=== PATIENT | female | born 1945 | race Caucasian/White ===

== ENCOUNTER → 2017-02-06 | Outpatient (CLI) | payer OTHER | LOC: FIMAGING 08:45 | DX: Z12.31 Encounter for screening mammogram for malignant neoplasm of breast (principal); Z80.3 Family history of malignant neoplasm of breast | CPT/HCPCS: G0202 ==

== ENCOUNTER → 2017-02-07 | Outpatient (CLI) | payer OTHER | LOC: FIMAGING 14:55 | PROVIDERS: ATTEND Physician Assistant | DX: M25.562 Pain in left knee (principal); M17.12 Unilateral primary osteoarthritis, left knee ==

== ENCOUNTER 2017-11-11 11:45 | Emergency (ER) | payer OTHER ==
[2017-11-11 12:04] VITALS: TEMP 98.2; O2SAT 98
--- NOTE | 2017-11-11 12:22 | EDPHY ---
H & P Stated Complaint: pt slipped and fell, deformity to left wrist Time Seen by Provider: 11/11/17 11:50 HPI/ROS: CHIEF COMPLAINT: Left wrist pain HISTORY OF PRESENT ILLNESS: 72-year-old female arrives via ambulance, not a trauma activation, after she slipped on ice landing on her outstretched left hand. She is complaining of left wrist pain. Denies head injury, denies break in skin, denies proximal upper extremity injury. Denies midline C-spine pain. Denies alcohol or drug use. No hip pain. PRIMARY CARE PROVIDER: REVIEW OF SYSTEMS: A ten point review of systems was performed and is negative with the exception of the items mentioned in the HPI PAST MEDICAL/SURGICAL HISTORY: no anticoagulant use, no relevant medical/ surgical history SOCIAL HISTORY: denies alcohol use at time of incident PHYSICAL EXAM 1) GENERAL: Well-developed, well-nourished, alert and oriented. Appears to be in no acute distress. Answering questions appropriately. 2) HEAD: Normocephalic, atraumatic 3) HEENT: Pupils equal, round, reactive to light bilaterally. Negative Horners. Nasopharynx, oropharynx, clear. No deformity or angulation of nose. No septal hematoma. No rhinorrhea. No oral trauma. Ears bilaterally with normal tympanic membranes. No hemotympanum. No fluid or blood in the external auditory canal. No raccoon eyes. No Villalobos sign. Teeth are normally aligned with no gross malocclusion, TMJ bilaterally nontender, facial bones nontender including the zygomatic arch, maxilla mandible. 4) NECK: No cervical collar is on. Posterior cervical spine is nontender, no stepoff, no effusion. Full range of motion which does not elicit any midline cervical spine pain, no posterior midline tenderness, no step-off. 5) LUNGS: Clear to auscultation bilaterally, no wheezes, no rhonchi, no retractions. No obvious signs of trauma. No chest wall pain. No flaring, no grunting. Moving symmetrically. No crepitus. 6) HEART: [Regular rate and rhythm, 7) ABDOMEN: No guarding, no rebound, no focal tenderness, no peritoneal signs, no signs of trauma, no ecchymosis 8) MUSCULOSKELETAL: Left upper extremity: Pre-hospital volar leigha splint in place, taken down revealing dorsal deformity, intact skin, radial ulnar median nerve function intact, brisk pulses. Proximally nontender. Elbow humerus shoulder nontender. Otherwise, Moving all extremities, no focal areas of tenderness, no obvious trauma. 9) BACK: No midline vertebral tenderness, no fluctuance, no step-off, no obvious trauma, no visual or palpable abnormality. 10) SKIN: No laceration. No abrasion DIFFERENTIAL DIAGNOSIS: In no particular include but limited to fracture, sprain, strain, dislocation - Personal History Current Tetanus Diphtheria and Acellular Pertussis (TDAP): Unsure - Medical/Surgical History Hx Asthma: No Hx Chronic Respiratory Disease: No Hx Diabetes: No Hx Cardiac Disease: No Hx Renal Disease: No Hx Cirrhosis: No Hx Alcoholism: No Hx HIV/AIDS: No Hx Splenectomy or Spleen Trauma: No Other PMH: a-fib, osteoprosis - Social History Smoking Status: Never smoked Constitutional: Initial Vital Signs Temperature (C) 36.8 C 11/11/17 11:55 Heart Rate 87 11/11/17 11:55 Respiratory Rate 18 11/11/17 11:55 Blood Pressure 152/79 H 11/11/17 11:55 O2 Sat (%) 98 11/11/17 11:55 O2 Delivery Mode Room Air Allergies/Adverse Reactions: Penicillins Allergy (Severe, Verified 03/14/10 17:26) Rash nitrofurantoin [From Macrobid] Allergy (Verified 11/11/17 11:55) Home Medications: Medication Instructions Recorded NO HOME MEDS 03/14/10 Hydrocodone/APAP 5/325 [[place] 1 tab PO Q6 PRN #7 tab 11/11/17 5/325 (RX)] Medical Decision Making - Diagnostics Imaging Results: Imaging Impressions Wrist X-Ray 11/11/17 12:04 Impression: 1. Comminuted displaced distal left radial metaphyseal fracture with intra- articular extension and impaction. 2. Ulnar styloid avulsion. 3. Loss of volume and fragmentation of the proximal pole of the left scaphoid potentially related to remote trauma. Associated scapholunate interspace widening. 4. First CMC osteoarthritis. Wrist X-Ray 11/11/17 13:01 Impression: Interval casting of the distal left forearm and wrist. Distal left radial metaphyseal fracture with impaction and dorsal displacement appears similar. Displaced ulnar styloid avulsion. Scapholunate interspace widening with loss of volume and fragmentation of the proximal pole of the scaphoid. Wrist X-Ray 11/11/17 13:39 Impression: Interval reduction in dorsal displacement of distal left radial metaphyseal fracture, with reconstitution of radial length. Procedures: Procedure: Fracture reduction Indication: Fracture of the distal radius Indications, risks and benefits discussed with patient and consent obtained. A hematoma block of 0.5% bupivicaine placed by myself. Traction and countertraction applied achieving a visible and palpable reduction. The area was splinted with sugar-tong splint and sling. After application of the splint I returned and re-examined the patient. The splint was adequately immobilizing the joint and distal to the splint the patient's circulation and sensation were intact. Patient shows no signs of compartment syndrome. Was given orthopedic precautions. ED Course/Re-evaluation: Care of patient under supervision of secondary supervising physician Dr Edy Salazar. Patient was re-evaluated with serial examinations, she remains neurovascularly intact. Plan will be discharge. She would like to follow up with Dr. Guerra Departure - Departure Disposition: Home, Routine, Self-Care Clinical Impression: Displaced fracture of left ulna styloid process, initial encounter for closed fracture Fall from slipping on ice Qualifiers: Encounter type: initial encounter Qualified Code(s): W00.9XXA - Unspecified fall due to ice and snow, initial encounter Distal radius fracture, left Qualifiers: Encounter type: initial encounter Fracture type: closed Fracture morphology: Colles' Qualified Code(s): S52.532A - Colles' fracture of left radius, initial encounter for closed fracture Condition: Good Instructions: Wrist Fracture in Adults (ED) Additional Instructions: Return to the ER immediately if you experience discoloration, have worsening pain, numbness, tingling, or any other symptoms that concern you. If you received x-rays in the emergency department today, be advised, that ligamentous , tendon, muscular, and other non-bony injury cannot be fully ruled out. Try to keep your affected extremity elevated above the level of your chest, and keep cold packs on the affected area, for the next 48 hours. Referrals: Reji Guerra MD [Medical Doctor] - 2-3 days, call for appt. Prescriptions: Hydrocodone/APAP 5/325 [[place] 5/325 (RX)] 1 tab PO Q6 PRN #7 tab PRN Reason: Pain, Severe
[2017-11-11 14:20] VITALS: PULSE 78; RESP 20
[2017-11-11 14:32] VITALS: BP 131/97
== END 2017-11-11 14:30 | disposition home or self-care (01) ==
LOC: EDUNIT#
PROC: 0PSJXZZ Reposition Left Radius, External Approach (ICD-10-PCS; principal; 2017-11-11)
DX: S52.532A Colles' fracture of left radius, initial encounter for closed fracture (principal); S52.612A Displaced fracture of left ulna styloid process, initial encounter for closed fracture; W00.0XXA Fall on same level due to ice and snow, initial encounter
CPT/HCPCS: 25605; 73110; 99283; A4565